=== PATIENT | male | born 1955 | race Caucasian/White ===

== ENCOUNTER → 2020-07-30 | Outpatient (CLI) | payer MEDICARE ==
--- NOTE | 2020-07-30 09:15 | RAD ---
EXAM: Left hand, 3 views. HISTORY: Pain. COMPARISON: 08/14/2019 FINDINGS: 3 views of the left hand are obtained. There is no acute fracture, dislocation or subluxati on. There are stable tiny radiodense foreign bodies within the soft tissues of the thumb at the level of the first interphalangeal joint. IMPRESSION: No acute osseous finding. Electronically signed by: Demetrai Trujillo MD (07/30/2020 9:11 AM) [id number]
== END ==
LOC: DXRAD 08:26
PROVIDERS: ATTEND Nurse Practitioner Adult Health
DX: Z23 Encounter for immunization (principal); S60.941A Unspecified superficial injury of left index finger, initial encounter; S61.201A Unspecified open wound of left index finger without damage to nail, initial encounter; X58.XXXA Exposure to other specified factors, initial encounter; Y93.89 Activity, other specified; Y92.89 Other specified places as the place of occurrence of the external cause; Y99.8 Other external cause status
CPT/HCPCS: 73130

== ENCOUNTER → 2020-09-14 | Outpatient (CLI) | payer MEDICARE | LOC: LAB 13:00 | DX: Z01.812 Encounter for preprocedural laboratory examination (principal); Z20.822 Contact with and (suspected) exposure to COVID-19; I73.9 Peripheral vascular disease, unspecified; I25.10 Atherosclerotic heart disease of native coronary artery without angina pectoris | CPT/HCPCS: U0003 ==

== ENCOUNTER → 2021-11-28 | Outpatient (CLI) | payer MEDICARE ==
--- NOTE | 2021-11-28 10:26 | RAD ---
EXAM: Bilateral lower extremity venous Doppler sonogram. HISTORY: Pain and swelling. TECHNIQUE: Salomon scale and color Doppler sonographic evaluation of the bilateral lower extremity veins with spectral waveform analysis was performed. FINDINGS: There is normal color flow, normal compressibility and there are normal spectral waveforms in the common femoral, superficial femoral, popliteal, posterior tibial and right greater saphenous v eins. The left greater saphenous vein is not seen. IMPRESSION: No Doppler evidence of lower extremity deep venous thrombosis. Electronically signed by: Demetria Trujillo MD (11/28/2021 10:24 AM) [id number]
== END ==
LOC: US 09:06
PROVIDERS: ATTEND Family Medicine
DX: I26.99 Other pulmonary embolism without acute cor pulmonale (principal); R06.02 Shortness of breath
CPT/HCPCS: 93970

== ENCOUNTER → 2021-11-29 | Outpatient (CLI) | payer MEDICARE ==
--- NOTE | 2021-11-29 08:43 | RAD ---
EXAM: Chest, 2 views. HISTORY: Shortness of air. COMPARISON: None. FINDINGS: 2 views of the chest are obtained. There is no infiltrate, pleural effusion or pneumothorax . The heart is normal in size. There is evidence of prior CABG. There has been distal right clavicula r resection. IMPRESSION: No acute pulmonary finding. Electronically signed by: Demetria Trujillo MD (11/29/2021 8:41 AM) [id number]
--- NOTE | 2021-11-29 10:43 | RAD ---
EXAM: Nuclear ventilation/perfusion scan. HISTORY: Shortness of air. TECHNIQUE: Ventilation images of the chest were obtained following the inhalation of technetium xenon -133 gas and perfusion images of the chest were obtained following administration of technetium 99m M AA. COMPARISON: Chest radiograph obtained on the same date. FINDINGS: The ventilation images demonstrate symmetric accumulation of radiotracer within both lungs. There is no significant tracer retention. The perfusion images demonstrate diffusely heterogeneous r adiotracer activity, a finding which can be seen with chronic obstructive pulmonary disease. There is no focal ventilation-perfusion defect. IMPRESSION: 1. Heterogeneous radiotracer activity on perfusion images, a finding which can be seen with chronic o bstructive pulmonary disease. 2. Low probability for pulmonary embolism. Electronically signed by: Demetria Trujillo MD (11/29/2021 10:40 AM) [id number]
== END ==
LOC: NM 07:57
PROVIDERS: ATTEND Family Medicine
DX: I26.99 Other pulmonary embolism without acute cor pulmonale (principal); Z95.1 Presence of aortocoronary bypass graft
CPT/HCPCS: 71046; 78582; A9540; A9558